=== PATIENT | female | born 1980 | race Caucasian/White ===

== ENCOUNTER 2017-01-29 07:21 | Emergency (ER) | payer OTHER ==
[2017-01-29 07:27] VITALS: BP 124/66
[2017-01-29] MEDS ORDERED: BUDESONIDE 180MCG FLEXHALER INH STA (07:36)
[2017-01-29] MEDS ORDERED: BUDESONIDE 0.5 MG/2 ML NEB INH STA (07:42)
--- NOTE | 2017-01-29 08:01 | ED Physician Documentation ---
History of Present Illness - Stated complaint Stated Complaint: SOA,COUGH - Chief complaint Chief Complaint: Resp - Additonal information Additional information: hx from pt 36 female 2 months approx 5-7 days of a cough and now soa too son also with cough/viral illness/asthma sx no travel non smoker active and fit no leg discomfort or swelling no personal or fhx DVT PE no fever sore throat NVD etc Review of Systems Constitutional: denies: Fever, Chills Nose: denies: Congestion Throat: denies: Sore throat Respiratory: reports: Dyspnea, Cough : reports: Now EGA Musculoskeletal: denies: Extremity swelling Neurologic: denies: Generalized weakness PD PAST MEDICAL HISTORY - Past Medical History Neuro: Headache/migraine GI: Hiatal hernia 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) - Past Surgical History Past Surgical History: Yes General: Other /INSPECTOR ASSEMBLY: Dilation and currettage HEENT: Tonsil/Adenoidectomy - Present Medications Home Medications: Ambulatory Orders Medication Instructions Recorded Confirmed Multivit with Iron-Minerals 1 each PO DAILY 07/05/16 01/29/17 [Cerovite Jr] Budesonide [Pulmicort] 1 puffs INH BID PRN #1 inhaler 01/29/17 Dextromethorphan HBr [Tussin 15 mg PO Q6H PRN #60 ml 01/29/17 Maximum Strength] - Allergies Allergies/Adverse Reactions: Allergies Allergy/AdvReac Type Severity Reaction Status Date / Time Penicillins Allergy Rash Verified 01/29/17 07:27 - Social History Does the pt smoke?: No Smoking Status: Never smoker Does the pt drink ETOH?: No Does the pt have substance abuse?: No - Immunizations Immunizations are current?: Yes - POLST Patient has POLST: No PD ED PE NORMAL - General General: Alert and oriented X 3 - HEENT HEENT: PERRL, Ears normal, Moist mucous membranes - Neck Neck: Supple, no meningeal sign - Cardiac Cardiac: RRR - Respiratory Respiratory: No respiratory distress, Clear bilaterally - Extremities Extremities: No deformity, Normal ROM s pain, No edema, No calf tenderness / cord - Neuro Neuro: Alert and oriented X 3 Results - Vitals Vitals: Vital Signs - 24 hr 01/29/17 07:25 Temperature 36.6 C Heart Rate 86 Respiratory 18 Rate Blood Pressure 124/66 O2 Saturation 98 Oxygen O2 Source Room air PD MEDICAL DECISION MAKING - ED course ED course: son with similar sx, has a freq dry cough and feeling soa cannot PERC 2/2 but is not tachy tachypneic hypoxic does not smoke and is very active and has no leg pain or swelling so strongly doubt PE lungs clear and afebrile so defer CXR will tx symptomatically pulmicort and DM are safe in preg so will rx same for symptom control return if worse Departure - Departure Disposition: 01 Home, Self Care Clinical Impression: Upper respiratory tract infection Qualifiers: URI type: unspecified URI Qualified Code(s): J06.9 - Acute upper respiratory infection, unspecified Condition: Good Instructions: ED URI Viral Prescriptions: Budesonide [Pulmicort] 1 puffs INH BID PRN #1 inhaler PRN Reason: cough shortness of breath Dextromethorphan HBr [Tussin Maximum Strength] 15 mg PO Q6H PRN #60 ml PRN Reason: Cough Comments: Your lungs sound clear - I don't think you have pneumonia. Your oxygen levels are fine and you don't have any leg pain or swelling so i don 't think you have a blood clot that travelled to your lungs. It sounds like you have a viral infection similar to what your son has I have prescribed some medications that are safe in to ease your symptoms. Please follow up with your OB. Return if worse
== END 2017-01-29 08:23 | disposition home or self-care (01) ==
LOC: ED 07:21
DX: O99.511 Diseases of the respiratory system complicating pregnancy, first trimester (principal); J06.9 Acute upper respiratory infection, unspecified; Z3A.08 8 weeks gestation of pregnancy
CPT/HCPCS: 99283

== ENCOUNTER 2018-06-20 19:14 | Emergency (ER) | payer OTHER ==
[2018-06-20 19:39] LABS: BASOPHILS # (AUTO) 0.1 10^3/uL (0.0-0.1); BASOPHILS % (AUTO) 0.6 %; EOSINOPHILS # (AUTO) 0.2 10^3/uL (0.0-0.7); EOSINOPHILS % (AUTO) 2.5 %; HGB - HEMOGLOBIN 13.5 g/dL (12.0-16.0); LYMPHOCYTES # (AUTO) 3.3 10^3/uL (1.5-3.5); LYMPHOCYTES % (AUTO) 34.5 %; MEAN CORPUSCULAR HEMOGLOBIN 30.5 pg (27.0-31.0); MEAN CORPUSCULAR VOLUME 87.2 fL (81.0-99.0); MEAN PLATELET VOLUME 8.1 fL (7.9-10.8); MONOCYTES # (AUTO) 0.7 10^3/uL (0.0-1.0); MONOCYTES % (AUTO) 7.4 %; NEUTROPHILS # (AUTO) 5.3 10^3/uL (1.5-6.6); PLT - PLATELET COUNT 212 10^3/uL (130-450); RED BLOOD COUNT 4.44 10^6/uL (4.20-5.40); RED CELL DISTRIBUTION WIDTH 12.6 % (12.0-15.0); WHITE BLOOD COUNT 9.6 x10^3/uL (4.8-10.8)
[2018-06-20 19:49] LABS: BILIRUBIN,URINE NEGATIVE (NEGATIVE); GLUCOSE, URINE (UA) NEGATIVE (NEGATIVE); KETONES,URINE (UA) NEGATIVE (NEGATIVE); LEUKOCYTE ESTERASE, URINE NEGATIVE (NEGATIVE); NITRITE,URINE NEGATIVE (NEGATIVE); OCCULT BLOOD,URINE TRACE-INTA (NEGATIVE); PROTEIN,URINE NEGATIVE (NEGATIVE); UROBILINOGEN,URINE 0.2 (NORMAL) E.U./dL (NORMAL)
[2018-06-20 19:54] LABS: CLARITY,URINE CLEAR (CLEAR)
[2018-06-20 19:55] LABS: HCG UR QUAL NEGATIVE
[2018-06-20 19:56] LABS: ALBUMIN 4.3 g/dL (3.2-5.5); ALBUMIN/GLOBULIN RATIO 1.6 (1.0-2.2); BILIRUBIN,TOTAL 0.4 mg/dL (0.2-1.0); CALCIUM 8.8 mg/dL (8.5-10.3); CREATININE 0.8 mg/dL (0.4-1.0)
--- NOTE | 2018-06-20 21:22 | ED Physician Documentation ---
PD HPI ABD PAIN - Stated complaint Stated Complaint: ABD PX/NAUSEATED - Chief complaint Chief Complaint: Abd Pain - History obtained from History obtained from: Patient - History of Present Illness Timing - onset: How many days ago (4-5) Timing - duration: Days Timing - details: Gradual onset, Waxing and waning Pain level now: 8 Quality: Pain Location: RLQ Radiation: Other (RUQ) Improved by: Other (nothing) Worsened by: Other (no ameliorating factors) Associated symptoms: Nausea. No: Fever, Vomiting, Diarrhea, Constipation Similar symptoms before: Has not had sx before Recently seen: Clinic (evaluated at [facility] 3 days ago, prescribed Mobic, no testing performed (per patient)) Review of Systems Constitutional: reports: Reviewed and negative Cardiac: reports: Reviewed and negative Respiratory: reports: Reviewed and negative GI: reports: Abdominal Pain, Nausea. 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 MACHINE TENDER: Dilation and currettage, Tubal ligation HEENT: Tonsil/Adenoidectomy - Present Medications Home Medications: Ambulatory Orders Medication Instructions Recorded Confirmed No Known Home Medications 06/20/18 06/20/18 - Allergies Allergies/Adverse Reactions: Allergies Allergy/AdvReac Type Severity Reaction Status Date / Time Penicillins Allergy Rash Verified 06/20/18 19:22 - Social History Does the pt smoke?: No Smoking Status: Never smoker Does the pt drink ETOH?: No Does the pt have substance abuse?: No - Immunizations Immunizations are current?: Yes - POLST Patient has POLST: No PD ED PE NORMAL - Vitals Vital signs reviewed: Yes - General General: Alert and oriented X 3, No acute distress (NAD at rest, appears to have painful discomfort with certain movement (such as sitting up)), Well developed/nourished - HEENT HEENT: Moist mucous membranes - Cardiac Cardiac: RRR, No murmur - Respiratory Respiratory: No respiratory distress, Clear bilaterally - Abdomen Abdomen: Soft, Non distended - Back Back: No CVA TTP - Derm Derm: Normal color, Warm and dry - Extremities Extremities: No edema PD ED PE EXPANDED - Abdomen Abdomen: Tender to palpation (moderate), RLQ. No: Rebound, Guarding Results - Vitals Vitals: Vital Signs - 24 hr 06/20/18 06/20/18 06/20/18 19:20 20:43 21:53 Temperature 36.8 C Heart Rate 67 Respiratory 16 17 17 Rate Blood Pressure 105/76 O2 Saturation 100 06/20/18 06/20/18 22:03 22:39 Temperature 36.6 C Heart Rate 61 60 Respiratory 16 16 Rate Blood Pressure 109/76 108/73 O2 Saturation 99 98 Oxygen O2 Source Room air - Labs Labs: Laboratory Tests 06/20/18 06/20/18 06/20/18 19:30 19:30 19:33 WBC 9.6 RBC 4.44 Hgb 13.5 Hct 38.8 MCV 87.2 MCH 30.5 MCHC 35.0 RDW 12.6 Plt Count 212 MPV 8.1 Neut # (Auto) 5.3 Lymph # (Auto) 3.3 [place] # (Auto) 0.7 Eos # (Auto) 0.2 Baso # (Auto) 0.1 Absolute Nucleated RBC 0.01 Nucleated RBC % 0.1 Sodium Potassium Chloride Carbon Dioxide Anion Gap BUN Creatinine Estimated GFR (MDRD) Glucose Calcium Total Bilirubin AST ALT Alkaline Phosphatase Total Protein Albumin Globulin Albumin/Globulin Ratio Lipase Urine Color YELLOW Urine Clarity CLEAR Urine pH 7.0 Ur Specific [place] 1.010 1.010 Urine Protein NEGATIVE Urine Glucose (UA) NEGATIVE Urine Ketones NEGATIVE Urine Occult Blood TRACE-INTA Urine Nitrite NEGATIVE Urine Bilirubin NEGATIVE Urine Urobilinogen 0.2 (NORMAL) Ur Leukocyte Esterase NEGATIVE Ur Microscopic Review NOT INDICATED Urine Culture Comments NOT INDICATED Urine HCG, Qual NEGATIVE 06/20/18 19:33 WBC RBC Hgb Hct MCV MCH MCHC RDW Plt Count MPV Neut # (Auto) Lymph # (Auto) [place] # (Auto) Eos # (Auto) Baso # (Auto) Absolute Nucleated RBC Nucleated RBC % Sodium 139 Potassium 3.7 Chloride 103 Carbon Dioxide 28 Anion Gap 8.0 BUN 22 H Creatinine 0.8 Estimated GFR (MDRD) 80 L Glucose 64 L Calcium 8.8 Total Bilirubin 0.4 AST 19 ALT 17 Alkaline Phosphatase 44 Total Protein 7.0 Albumin 4.3 Globulin 2.7 Albumin/Globulin Ratio 1.6 Lipase 47 Urine Color Urine Clarity Urine pH Ur Specific [place] Urine Protein Urine Glucose (UA) Urine Ketones Urine Occult Blood Urine Nitrite Urine Bilirubin Urine Urobilinogen Ur Leukocyte Esterase Ur Microscopic Review Urine Culture Comments Urine HCG, Qual PD MEDICAL DECISION MAKING - ED course Complexity details: reviewed results, re-evaluated patient, considered differential, d/w patient ED course: Unfortunately, CT scanner is not working at this time at [facility] and awaiting part that should come tomorrow (thus not expected to be repaired at least until birgit orrow). D/W Dr. Powers (ED physician at ), accepts for transfer to perform CT A/P. I explained this plan, and reason for transfer, to patient, and she expresses understanding of, and agreement with , this plan. - Sepsis Event Vital Signs: Vital Signs - 24 hr 06/20/18 06/20/18 06/20/18 19:20 20:43 21:53 Temperature 36.8 C Heart Rate 67 Respiratory 16 17 17 Rate Blood Pressure 105/76 O2 Saturation 100 06/20/18 06/20/18 22:03 22:39 Temperature 36.6 C Heart Rate 61 60 Respiratory 16 16 Rate Blood Pressure 109/76 108/73 O2 Saturation 99 98 Oxygen O2 Source Room air Departure - Departure Disposition: 02 Transfer Acute Care Hosp Clinical Impression: Abdominal pain Qualifiers: Abdominal location: right lower quadrant Qualified Code(s): R10.31 - Right lower quadrant pain Condition: Stable Discharge Date/Time: 06/20/18 23:21
[2018-06-20] MEDS ORDERED: MORPHINE 10 MG/ML VIAL IVP STA (21:54)
[2018-06-20] MEDS ORDERED: SODIUM CHLORIDE 0.9% 1,000 ML IV STA (21:55)
[2018-06-20] MEDS ORDERED: ONDANSETRON 4 MG/2 ML VIAL IVP STA (22:19)
[2018-06-20 22:41] VITALS: BP 108/73
== END 2018-06-20 23:21 | disposition short-term general hospital (02) ==
LOC: ED 19:14
DX: R10.31 Right lower quadrant pain (principal)
CPT/HCPCS: 36415; 80053; 81001; 81003; 81025; 83690; 85025; 87086; 96374; 96375; 99283; 99284

== ENCOUNTER 2018-06-20 22:56 | Outpatient (CLI) | payer OTHER | END 2018-06-20 22:57 | disposition short-term general hospital (02) | LOC: EMS 22:56 | PROVIDERS: ATTEND Surgery | DX: R10.9 Unspecified abdominal pain (principal) | CPT/HCPCS: A0425; A0426 ==

== ENCOUNTER 2019-01-24 06:42 | Emergency (ER) | payer OTHER ==
[2019-01-24 06:53] VITALS: BP 113/66
[2019-01-24 07:13] LABS: BILIRUBIN,URINE NEGATIVE (NEGATIVE); GLUCOSE, URINE (UA) NEGATIVE (NEGATIVE); KETONES,URINE (UA) NEGATIVE (NEGATIVE); LEUKOCYTE ESTERASE, URINE MODERATE (NEGATIVE); NITRITE,URINE NEGATIVE (NEGATIVE); OCCULT BLOOD,URINE MODERATE (NEGATIVE); PROTEIN,URINE NEGATIVE (NEGATIVE); UROBILINOGEN,URINE 0.2 (NORMAL) E.U./dL (NORMAL)
--- NOTE | 2019-01-24 07:15 | ED Physician Documentation ---
PD HPI ABD PAIN - Stated complaint Stated Complaint: ABD/LOW BACK PX - Chief complaint Chief Complaint: Abd Pain - History obtained from History obtained from: Patient - History of Present Illness Timing - onset: Other (This is a 38-year-old woman has been dealing with some abdominal pain for quite some time. For the most part it has been upper abdominal central. It was diagnosed to gas as a sports hernia by ultrasound. She had a CAT scan about 7 or 8 months ago that was negative per her at [facility]. She is been in physical therapy for this. She also has a bilateral inguinal hernia repair with mesh. Over the last 2 days she has had more right- sided mid abdominal pain. She alternates between constipation and diarrhea. It may be related to stress. She denies nausea or changes with eating. There is no specific motions that change it. There is no possibility of .) Review of Systems Ten Systems: 10 systems reviewed and negative Constitutional: denies: Fever, Chills Throat: denies: Dental pain / toothache, Sore throat Cardiac: denies: Chest pain / pressure, Palpitations Respiratory: denies: Dyspnea, Cough PD PAST MEDICAL HISTORY - Past Medical History Cardiovascular: None Respiratory: None Neuro: None Endocrine/Autoimmune: None GI: Hiatal hernia STUDY LEAD: Miscarriage(s) : None HEENT: None Psych: None Musculoskeletal: None Derm: None - Past Surgical History Past Surgical History: Yes General: Other /STUDY LEAD: Dilation and currettage, Tubal ligation HEENT: Tonsil/Adenoidectomy - Present Medications Home Medications: Ambulatory Orders Medication Instructions Recorded Confirmed Ibuprofen [Motrin] 800 mg PO Q8H PRN #30 tablet 01/24/19 - Allergies Allergies/Adverse Reactions: Allergies Allergy/AdvReac Type Severity Reaction Status Date / Time Penicillins Allergy Rash Verified 06/20/18 19:22 - Social History Does the pt smoke?: No Smoking Status: Never smoker Does the pt drink ETOH?: No Does the pt have substance abuse?: No - Family History Family history: reports: Non contributory - Immunizations Immunizations are current?: Yes - POLST Patient has POLST: No PD ED PE NORMAL - Vitals Vital signs reviewed: Yes - General General: Alert and oriented X 3, No acute distress - HEENT HEENT: PERRL, EOMI - Neck Neck: Supple, no meningeal sign, No bony TTP - Cardiac Cardiac: RRR, No murmur - Respiratory Respiratory: No respiratory distress - Abdomen Abdomen: Normal bowel sounds, Soft, Other (Tender R mid abd, no G/R) - Back Back: No CVA TTP - Derm Derm: Normal color, Warm and dry - Extremities Extremities: No edema, No calf tenderness / cord - Neuro Neuro: Alert and oriented X 3, Normal speech - Psych Psych: Normal mood, Normal affect Results - Vitals Vitals: Vital Signs - 24 hr 01/24/19 06:47 Temperature 36.4 C L Heart Rate 69 Respiratory 20 Rate Blood Pressure 113/66 O2 Saturation 100 Oxygen O2 Source Room air - Labs Labs: Laboratory Tests 01/24/19 01/24/19 01/24/19 06:54 07:15 07:15 WBC 5.7 RBC 4.54 Hgb 13.4 Hct 39.8 MCV 87.7 MCH 29.6 MCHC 33.7 RDW 12.4 Plt Count 218 MPV 8.1 Neut # (Auto) 3.0 Lymph # (Auto) 2.0 [place] # (Auto) 0.6 Eos # (Auto) 0.1 Baso # (Auto) 0.0 Absolute Nucleated RBC 0.00 Nucleated RBC % 0.1 Sodium 139 Potassium 3.6 Chloride 105 Carbon Dioxide 25 Anion Gap 9.0 BUN 17 Creatinine 1.0 Estimated GFR (MDRD) 62 L Glucose 101 H Calcium 8.9 Total Bilirubin 1.0 AST 16 ALT 13 Alkaline Phosphatase 34 L Total Protein 6.4 L Albumin 3.8 Globulin 2.6 Albumin/Globulin Ratio 1.5 Lipase 35 Urine Color YELLOW Urine Clarity HAZY Urine pH 6.0 Ur Specific [place] 1.015 Urine Protein NEGATIVE Urine Glucose (UA) NEGATIVE Urine Ketones NEGATIVE Urine Occult Blood MODERATE H Urine Nitrite NEGATIVE Urine Bilirubin NEGATIVE Urine Urobilinogen 0.2 (NORMAL) Ur Leukocyte Esterase MODERATE H Urine RBC 6-10 H Urine WBC 6-10 H Ur Squamous Epith Cells FEW Squamous Urine Bacteria Few Ur Microscopic Review INDICATED Urine Culture Comments INDICATED Urine HCG, Qual NEGATIVE - Rads (name of study) CT A/P Radiology: EMP read contemporaneously (Pelvic venous congestion, normal ap pendix, no other acute abnormalities.) PD MEDICAL DECISION MAKING - ED course ED course: 38-year-old woman with now chronic unexplained abdominal pain presents with somewhat new and different right-sided abdominal pain and appendicitis was on the differential but negative on CT. The CT findings were shared with her and primary care and gynecologic follow-up was advised. She declined pain medication. Departure - Departure Disposition: 01 Home, Self Care Clinical Impression: Chronic abdominal pain Condition: Good Record reviewed to determine appropriate education?: Yes Instructions: ED Abdominal Pain Unkn Cause Prescriptions: Ibuprofen [Motrin] 800 mg PO Q8H PRN #30 tablet PRN Reason: PAIN &/OR FEVER Comments: The CAT scan today shows potential pelvic venous congestion which may be a painful phenomenon, follow-up with your hog ringer for evaluation of this. Return for new or worsening symptoms. Discharge Date/Time: 01/24/19 08:52
[2019-01-24 07:18] LABS: CLARITY,URINE HAZY (CLEAR); HCG UR QUAL NEGATIVE
[2019-01-24 07:23] LABS: BASOPHILS % (AUTO) 0.8 %; EOSINOPHILS # (AUTO) 0.1 10^3/uL (0.0-0.7); EOSINOPHILS % (AUTO) 1.6 %; HGB - HEMOGLOBIN 13.4 g/dL (12.0-16.0); LYMPHOCYTES % (AUTO) 34.7 %; MEAN CORPUSCULAR HEMOGLOBIN 29.6 pg (27.0-31.0); MEAN CORPUSCULAR HGB CONC 33.7 g/dL (32.0-36.0); MEAN CORPUSCULAR VOLUME 87.7 fL (81.0-99.0); MEAN PLATELET VOLUME 8.1 fL (7.9-10.8); MONOCYTES # (AUTO) 0.6 10^3/uL (0.0-1.0); MONOCYTES % (AUTO) 9.9 %; PLT - PLATELET COUNT 218 10^3/uL (130-450); RED BLOOD COUNT 4.54 10^6/uL (4.20-5.40); RED CELL DISTRIBUTION WIDTH 12.4 % (12.0-15.0); WHITE BLOOD COUNT 5.7 x10^3/uL (4.8-10.8)
[2019-01-24] MEDS ORDERED: IOVERSOL 320 100 ML VIAL IVP ONE ×2 (07:27→13:45)
[2019-01-24 07:38] LABS: ALBUMIN 3.8 g/dL (3.2-5.5); ALBUMIN/GLOBULIN RATIO 1.5 (1.0-2.2); CALCIUM 8.9 mg/dL (8.5-10.3); TOTAL PROTEIN 6.4 g/dL (6.7-8.2)
[2019-01-24 07:53] LABS: BACTERIA,URINE Few /HPF (None Seen); SQUAMOUS EPITHELIAL CELL,UR FEW Squamous (<= Few)
--- NOTE | 2019-01-24 07:59 | CT Report ---
Reason: IV only, RLQ pain Procedure Date: 01/24/2019 Accession Number: [id number] / [id number] Procedure: CT - Abdomen/Pelvis W CPT Code: FULL RESULT: EXAM: CT ABDOMEN AND PELVIS EXAM DATE: 01/24/2019 07:42 AM. CLINICAL HISTORY: Right lower quadrant pain. COMPARISONS: ABDOMEN/PELVIS W/ 10/12/2014 8:44 AM. TECHNIQUE: Routine helical CT imaging was performed through the abdomen and pelvis. IV contrast: 90 cc Optiray 320. Enteric contrast: No. Reconstructions: Coronal and sagittal. In accordance with CT protocol optimization, one or more of the following dose reduction techniques were utilized for this exam: automated exposure control, adjustment of mA and/or KV based on patient size, or use of iterative reconstructive technique. FINDINGS: Lung Bases: Unremarkable. Liver: Normal. No masses. Gallbladder/Bile Ducts: Unremarkable. Spleen: Normal. Pancreas: Normal. Adrenal Glands: Normal. Kidneys: Normal. No masses or hydronephrosis. Peritoneal Cavity/Bowel: Normal. No free fluid, free air or adenopathy. No masses or acute inflammatory process. The appendix is well visualized and normal. Pelvic Organs: Normal. The bladder and visualized pelvic organs are within normal limits. Vasculature: Prominence of the left gonadal and periuterine veins is seen. Otherwise, unremarkable. Bones: No significant abnormality. Other: None. IMPRESSION: 1. No acute intra-abdominal abnormality demonstrated. Appendix appears normal. 2. Prominent left gonadal and periuterine veins likely due to reflux. Correlate clinically for pelvic congestion syndrome. RADIA
== END 2019-01-24 08:52 | disposition home or self-care (01) ==
LOC: ED 06:42
DX: R10.9 Unspecified abdominal pain (principal); G89.29 Other chronic pain
CPT/HCPCS: 36415; 74177; 80053; 81001; 81025; 83690; 85025; 87086; 99283; Q9967; 81003

== ENCOUNTER 2019-02-25 12:37 | Outpatient (CLI) | payer OTHER ==
[2019-02-25] MEDS ORDERED: GADOBUTROL 7.5 MMOL/7.5 ML VIAL ONE (14:07)
[2019-02-25] MEDS ORDERED: GADOBUTROL 7.5 MMOL/7.5 ML VIAL IVP ONE (14:15)
--- NOTE | 2019-02-25 20:29 | MRI Report ---
Reason: PELVIC AND PERINEAL PAIN Procedure Date: 02/25/2019 Accession Number: [id number] / [id number] Procedure: MRI - Pelvis W/WO CPT Code: FULL RESULT: EXAM: MR PELVIS WITH AND WITHOUT CONTRAST (MR FEMALE PELVIS) EXAM DATE: 02/25/2019 02:27 PM. CLINICAL HISTORY: PELVIC AND PERINEAL PAIN. COMPARISON: CT 01/24/2019. TECHNIQUE: Multiplanar breath-hold T1, T2 and DWI sequences obtained through the pelvis on an MR scanner. Images obtained before and after administration of 7.5 cc Gadavist intravenous contrast. FINDINGS: Reproductive Organs: Uterus: The uterus is anteverted and measures 6 x 5 x 5 cm with volume 75 cc. The endometrial stripe measures 6 mm. There are a few punctate T1 hyperintense foci within the fundal endometrial canal/transitional zone. No evidence of focal uterine mass. Moderate left greater than right pelvic varices around the uterus, ovaries and extending into the anteroinferior pelvis adjacent to the urethra. Right Ovary: The right ovary measures 2.7 x 2 cm . Few small follicles and appears normal. Left Ovary: The left ovary measures 2.7 x 1.6 cm . A few small follicles and normal enhancement. Bowel: The visualized portions of the small bowel, colon, and rectum appear normal. Bladder: The urinary bladder appears normal. Other: None. IMPRESSION: 1. Punctate T1 hyperintense foci in the fundal endometrial/junctional zone. Likely small foci of uterine adenomyosis. 2. Moderate left greater than right pelvic varices. 3. No additional evidence of mass, lymphadenopathy or inflammatory process in the pelvis. RADIA
== END 2019-02-25 12:38 | disposition home or self-care (01) ==
LOC: DI 12:37
PROVIDERS: ATTEND Obstetrics & Gynecology
DX: R10.2 Pelvic and perineal pain (principal); I86.2 Pelvic varices
CPT/HCPCS: 72197; A9585

== ENCOUNTER 2019-04-03 07:30 | Inpatient (IN) | payer OTHER ==
[2019-04-13 11:21] LABS: HCG UR QUAL NEGATIVE
[2019-04-13] MEDS ORDERED: LIDOCAINE MPF 1%-EPI 1:200000 30 ML VIAL ONE (11:30)
[2019-04-13] MEDS ORDERED: BUPIVACAINE 0.25% PF 30 ML VIAL ONE (11:30)
[2019-04-13] MEDS ORDERED: LACTATED RINGERS 1,000 ML IV ONE ×2 (11:32→13:52)
--- NOTE | 2019-04-13 11:34 | ANESTHESIA ---
Pre-Anesthesia VS, & Labs - Diagnosis adenomyosis, pelvic pain - Procedure laparoscopic assisted vaginal hysterectomy Vital Signs: Temp Pulse Resp BP Pulse Ox 36.3 C L 53 L 16 112/73 100 04/13/19 11:11 04/13/19 11:11 04/13/19 11:11 04/13/19 11:11 04/13/19 11:11 Height 5 ft 7 in Weight (kg) 68.95 kg Body Mass Index 24.7 - NPO >8 hours - Is Patient ?: No Home Medications and Allergies Home Medications: Ambulatory Orders Multivitamin [Multivitamins] 1 each PO 04/07/19 Multivitamin [Multivitamins] 1 each PO 04/07/19 Allergies/Adverse Reactions: Allergies Allergy/AdvReac Type Severity Reaction Status Date / Time Penicillins Allergy Rash Verified 04/07/19 11:36 Anes History & Medical History - Anesthetic History Anesthesia Complications: reports: No previous complications Family history of Anesthesia Complications: Denies Family history of Malignant Hyperthermia: Denies - Medical History Cardiovascular: reports: None Pulmonary: reports: None Gastrointestinal: reports: None Urinary: reports: Other Neuro: reports: None Musculoskeletal: reports: None Endocrine/Autoimmune: reports: None Blood Disorders: reports: None Skin: reports: None Smoking Status: Never smoker - Surgical History General: Colonoscopy, Other Eyes Ears Nose Throat (EENT): Tonsil/Adenoidectomy Gynecologic: Endometrial ablation, Dilation and currettage, Breast implants Exam General: Alert, Oriented x3, Cooperative, No acute distress Dental: WNL Mouth Openin Fingerbreadth Neck Mobility: Normal Mallampati classification: II Thyromental Distance: 4-6 cm Respiratory: Lungs clear, Normal breath sounds, No respiratory distress, No accessory muscle use Cardiovascular: Regular rate, Normal S1, Normal S2, No murmurs Plan Anesthesia Type: General Consent for Procedure(s) Verified and Reviewed: No Code Status: Attempt Resuscitation ASA classification: 1-Healthy patient Is this case an emergency?: No
[2019-04-13] MEDS ORDERED: CEFAZOLIN SODIUM IN 0.9 % NACL 2 GM/100 ML BAG IV ONE (11:45)
[2019-04-13] MEDS ORDERED: LIDOCAINE 1%-EPI 1:100000 20 ML MDV SUBQ ONE (13:14)
[2019-04-13] MEDS ORDERED: BUPIVACAINE 0.25% PF 30 ML VIAL SUBQ ONE ×2 (13:14)
[2019-04-13] MEDS ORDERED: ONDANSETRON 4 MG/2 ML VIAL IVP PRN (14:37)
[2019-04-13] MEDS ORDERED: SIMETHICONE CHEW 80 MG TABLET PO PRN (14:37)
[2019-04-13] MEDS ORDERED: ACETAMINOPHEN 1,000 MG/100 ML 100 ML IV ONE (14:42)
[2019-04-13] MEDS ORDERED: GLYCOPYRROLATE 1 MG/5 ML VIAL IVP ONE (14:42)
[2019-04-13] MEDS ORDERED: ROCURONIUM 50 MG/5 ML VIAL IVP ONE (14:42)
[2019-04-13] MEDS ORDERED: DEXAMETHASONE 4 MG/ML VIAL IVP ONE (14:42)
[2019-04-13] MEDS ORDERED: PROPOFOL 200 MG/20 ML VIAL IVP ONE (14:42)
[2019-04-13] MEDS ORDERED: fentaNYL 250 MCG/5 ML VIAL IVP ONE (14:42)
[2019-04-13] MEDS ORDERED: NEOSTIGMINE 1 MG/1 ML 10 ML MDV IVP ONE (14:42)
[2019-04-13] MEDS ORDERED: MIDAZOLAM 2 MG/2 ML VIAL IVP ONE (14:42)
[2019-04-13] MEDS ORDERED: ONDANSETRON 4 MG/2 ML VIAL IVP ONE (14:42)
[2019-04-13] MEDS ORDERED: KETOROLAC 30 MG/ML VIAL IVP ONE (14:42)
--- NOTE | 2019-04-13 14:52 | OPERATIVE REPORT ---
Operative Report - General Admit Date: 04/13/19 Procedure Date: 04/13/19 Planned Procedure: Laparoscopic-assisted vaginal hysterectomy Pre-Op Diagnosis: Chronic pelvic pain, pelvic congestion, suspected adenomyosis Procedure Performed: Laparoscopic-assisted vaginal hysterectomy Post Op Diagnosis: MISAEL - Procedure Note Primary Surgeon: Dr. Jeane Garcia Secondary Surgeon: Dr. Bj Taveras Anesthesia Provider: PAULA Bender Anesthesia Technique: General ET tube, Local (0.25% marcaine plain, 1% lidocaine with epi) Pathology: Uterus and cervix IV Fluids (mL): 1,400 Estimated Blood Loss (mL): 250 Urine Output (mL): 50 Indications: The patient is a 38-year-old 7 para 3 abortus 4 female here for hysterectomy for management of chronic pelvic pain, pelvic congestion, and suspected adenomyosis. She has been on continuous control pills and has noted no improvement in pain. Her gynecologic history is notable for a hysteroscopy, dilation curettage, and endometrial ablation on 25 April 2018 (for management of abnormal uterine bleeding). The surgery was uncomplicated, and findings were normal. Her pathology result was also benign. In addition, she had laparoscopic bilateral salpingectomies in 2017, and no endometriosis was noted intraoperatively. Shortly after her recent ablation surgery, she presented to clinic with a complaint of right flank pain, which was thought related to activity and improved with trigger point injection then lidocaine patches. She has tried physical therapy, rest, and time, but she continues to have frequent episodes of right flank pain and right lower quadrant pain. She states her physical therapist recommend an MRI, which was obtained and showed no clear musculoskeletal reason for her pain. All symptoms seemed to have started since her ablation surgery. She reports cramping that starts at the right flank and radiates to the right lower quadrant. Pain seems to occur most frequently while exercising. She is also struggling with fatigue and constipation and has seen GI for her constipation concerns. Her recent colonoscopy was normal. She had a CT abdomen and pelvis with results noting only left pelvic congestion. Additionally, a pelvic ultrasound in 2018 also noted left pelvic congestion (though the patient was asymptimn. After reviewing her constellation of sympt oms and her evaluation notable for pelvic congestion, we discussed the possibility of ADVERTISING PRODUCTION MANAGER causes to include post-tubal, ablation pain or adenomyosis. The pelvic congestion may also be contributing to her pain. We also discussed possible etiology being abdominal or pelvic adhesions, as well as the possibility that the pain may not be of ADVERTISING PRODUCTION MANAGER etiology. Following this discussion, she desired to proceed with definitive surgical management for her gynecologic concerns in the form of a hysterectomy. The risks, benefits, limitations, alternatives, and expectations of surgery were discussed. The c onsent was reviewed and signed prior to the date of surgery. Findings: Exam under anesthesia: The uterus was approximately 7 weeks in size and anteverted. There were no adnexal masses palpable. Operative findings: The uterus was slightly enlarged and boggy. Bilateral pelvic vascular congestion was noted. There were some residual sutures within the anterior peritoneum at the site of the patient's right hernia repair. These were left in situ. Her appendix was visualized and appeared normal. There were no endometriosis lesions noted. Some filmy adhesions were noted from the ascending bowel to the right flank peritoneum. These were left in situ. The liver edge appeared normal; however, the gallbladder appeared enlarged but otherwise normal in appearance. No other pelvic adhesions were noted. The fallopian tubes were surgically absent. The ovaries were normal in appearance. Complications: None - Other Other Information/Narrative: Procedure: The patient was taken to the operating room, where general endotracheal anesthesia was administered without difficulty. She was then positioned with her lower extremities in yellow-fin stirrups. Exam under anesthesia was then performed with the findings as noted above. Perineum, vagina, and abdomen were then prepped and draped in sterile fashion, and a garrett catheter was placed. Time out was then performed. Attention was first turned to placement of a uterine manipulator. A sterile bivalve speculum was inserted, and the cervix grasped with a single-toothed tenaculum. The cervix was then dilated until a HUMI uterine manipulator could be placed and balloon inflated. The tenaculum and speculum were then removed. Attention was then turned to the laparoscopy. 0.25% Marcaine, plain, was injected infraumbilically, then a 7-mm vertical skin incision made. A Verrees needle was then inserted through the anterior layers of the abdominal wall with saline drop test suggesting intraperitoneal placement. Carbon dioxide gas insufflation was then performed with appropriate opening pressures noted. Once 2 L of gas was instilled, a 0-degree, 5 mm laparoscope was inserted into a 5 mm trocar and passed through the anterior layers of the abdominal wall using Optiview technique. The abdomen was visualized, then 2 additional ports placed at the right and left lower quadrants, first instilling local anesthetic then placing 5 mm ports. The patient was placed into Trendelenberg and bowel swept out of the cul-de-sac. The left cornu was grasped, and the uterus retracted medially. The left round ligament was then cross-clamped, cauterized, and cut, then the anterior leaf of the broad ligament undermined, cauterized, and cut starting the bladder flap dissection on the left. The left utero-ovarian pedicle was then cross-clamped, cauterized, and cut. The left uterine vessels were then skeletonized, cross- clamped, cauterized, and cut. Attention was then turned to the right side, where the dissection was completed in similar fashion. The bladder flap was extended across the midline, completely dissecting the bladder inferiorly. Any bleeding was controlled with cautery. The trocars were left in situ as well as the majority of the gas while attention was turned to the vaginal portion of the case. The lower extremities were elevated to high lithotomy, the uterine manipulator was removed, and a sterile weighted speculum placed. The cervix was grasped with a double-toothed tenaculum, then 1% Lidocaine with epinephrine was injected circumferentially for hemostasis. A circumferential incision was then made with cauterization. The posterior cul-de-sac was not entered easily with blunt dissection, so inferior uterosacral ligaments were cross-clamped, cut, suture- ligated, and tagged for later identification. The cul-de-sac was then entered sharply, and an Auvard speculum placed after tagging the midline posterior peritoneum. A moderate collection of blood and clot was encountered, but no source for ongoing bleeding was noted. The anterior cul-de-sac was then entered using initially blunt dissection then a small sharp incision into the peritoneum. Two additional pedicles were secured on each side and two more on the right, then the uterus and cervix removed vaginally. Some bleeding was noted at a pedicle on the patient's right. This was grasped with an Allis clamp then secured with a figure of eight suture. Hemostasis was noted at that time. The peritoneum was then closed with a purse-string suture of 0 vicryl, then the vaginal cuff was irrigated with sterile saline. The vaginal mucosa was then closed with serial figure of eight sutures of 0 vicryl. A sponge stick was placed, and attention returned to laparoscopy to visualize the cuff for bleeding. The lower extremities were replaced into low lithotomy. Gas was instilled again, and the dissections site noted to have a small amount of bleeding at the right uteroovarian dissection. This was cauterized then hemostatic. Copious irrigation was performed. The ureters were visualized and peristalsed. At this point the procedure was deemed complete. The gas was allowed to escape, and the trocars removed. The incisions were then closed with 4-0 monocryl in a subcuticular fashion followed by Dermabond. The sponge stick was removed from the vagina. The patient was then replaced supine, awakened, extubated, and transferred to the PACU in stable condition. There were no complications. Sponge, lap, and needle count were correct x 3.
[2019-04-13] MEDS ORDERED: KETOROLAC 30 MG/ML VIAL IVP SCH (15:00)
[2019-04-13] MEDS: LACTATED RINGERS 1,000 ML IV SCH ×2 (15:00→20:33)
[2019-04-13] MEDS ORDERED: MORPHINE 10 MG/ML VIAL IVP PRN (15:20)
[2019-04-13] MEDS: ACETAMINOPHEN 500 MG TABLET PO SCH ×2 (18:05→21:10)
[2019-04-13] MEDS: oxyCODONE 5 MG TABLET PO PRN (19:16)
[2019-04-13] MEDS: DOCUSATE SODIUM 100 MG CAPSULE PO SCH (21:09)
[2019-04-13] MEDS: KETOROLAC 30 MG/ML VIAL IVP SCH (21:11)
[2019-04-13] MEDS ORDERED: SODIUM CHLORIDE FLUSH 0.9% 10 ML SYRINGE ONE (21:13)
[2019-04-14] MEDS: oxyCODONE 5 MG TABLET PO PRN ×3 (00:43→14:20)
[2019-04-14] MEDS: ACETAMINOPHEN 500 MG TABLET PO SCH ×4 (00:44→13:38)
[2019-04-14] MEDS: KETOROLAC 30 MG/ML VIAL IVP SCH ×2 (02:38→07:49)
[2019-04-14 05:07] LABS: BASOPHILS % (AUTO) 0.3 %; EOSINOPHILS % (AUTO) 0.1 %; HGB - HEMOGLOBIN 11.3 g/dL (12.0-16.0); LYMPHOCYTES # (AUTO) 2.2 10^3/uL (1.5-3.5); LYMPHOCYTES % (AUTO) 14.7 %; MEAN CORPUSCULAR HEMOGLOBIN 30.5 pg (27.0-31.0); MEAN CORPUSCULAR HGB CONC 33.7 g/dL (32.0-36.0); MEAN CORPUSCULAR VOLUME 90.3 fL (81.0-99.0); MONOCYTES # (AUTO) 1.5 10^3/uL (0.0-1.0); MONOCYTES % (AUTO) 9.6 %; NEUTROPHILS # (AUTO) 11.3 10^3/uL (1.5-6.6); NEUTROPHILS % (AUTO) 74.6 %; PLT - PLATELET COUNT 176 10^3/uL (130-450); RED BLOOD COUNT 3.71 10^6/uL (4.20-5.40); RED CELL DISTRIBUTION WIDTH 11.6 % (12.0-15.0); WHITE BLOOD COUNT 15.2 x10^3/uL (4.8-10.8)
[2019-04-14] MEDS: LACTATED RINGERS 1,000 ML IV SCH (06:10)
[2019-04-14] MEDS ORDERED: SODIUM CHLORIDE FLUSH 0.9% 10 ML SYRINGE ONE (07:37)
[2019-04-14] MEDS: DOCUSATE SODIUM 100 MG CAPSULE PO SCH (07:50)
[2019-04-14] MEDS ORDERED: POLYETHYLENE GLYCOL 3350 17 GM PACKET PO SCH (14:30)
--- NOTE | 2019-04-14 15:12 | DISCHARGE SUMMARY ---
"Discharge Summary Admit Date: 04/13/19 Discharge Date: 04/14/19 Discharging Provider: Dr. Jeane Garcia Code Status: Attempt Resuscitation Condition at Discharge: Good Discharge Disposition: 01 Home, Self Care - DIAGNOSES Admission Diagnoses: Chronic pelvic pain, pelvic congestion, suspected adenomyosis Discharge Diagnoses with Status of Each Condition: Same now s/p LAVH - HPI History of Present Illness: See admission H&P - CONSULTS | PROCEDURES Procedures: Laparoscopic-assisted vaginal hysterectomy - HOSPITAL COURSE Hospital Course: After an uncomplicated laparoscopic-assisted vaginal hysterectomy, the patient was admitted to the recovery room and then the dias in stable condition. Overnight, her only concern was a sensation of a full bladder despite the presence of a Nettles catheter. A bedside bladder scan noted residual urine approximating 200-300 mL. The catheter was repositioned; however, some element of urinary retention persisted, and the bladder did not completely drain. The catheter was finally removed per physician recommendation to improve the patient's comfort. Once the catheter was removed, she was able to void and felt much better. On postoperative day #1 she was up and ambulating, tolerating oral intake, and controlling pain with oral pain medication. She was afebrile with normal vital signs during hospital day and was discharged home on postoperative day #1. - ALLERGIES Allergies/Adverse Reactions: Allergies Allergy/AdvReac Type Severity Reaction Status Date / Time Penicillins Allergy Rash Verified 04/07/19 11:36 - MEDICATIONS Home Medications: Ambulatory Orders Medication Instructions Recorded Confirmed Multivitamin [Multivitamins] 1 tab PO DAILY 04/07/19 04/13/19 Ibuprofen [Ibu] 800 mg PO DAILY PRN 04/13/19 04/13/19 Dicyclomine HCl 20 mg PO DAILY 04/14/19 04/14/19 Norethindrone-E.estradiol-Iron 1 tab PO DAILY 04/14/19 04/14/19 [Junel Fe 1.5 mg-30 Mcg Tablet] Omeprazole 20 mg PO QDAC 04/14/19 04/14/19 - PHYSICAL EXAM AT DISCHARGE General Appearance: positive: No acute distress Eyes Bilateral: positive: Normal inspection Respiratory: positive: No respiratory distress, Breath sounds nml Cardiovascular: positive: Regular rate & rhythm Abdomen: positive: Nml bowel sounds, Tenderness (Appropriate postop tenderness and distension noted.), Other (LSC incisions x 3: well-approximated with no separation, discharge, erythema, or bruising.) Skin: positive: Color nml Extremities: positive: Non-tender, Full ROM Neurologic/Psychiatric: positive: Oriented x3 - LABS Result Diagrams: 04/14/19 04:48 - FOLLOW UP Follow Up: [id number] at [facility] at 1015 - TIME SPENT Time Spent in Discharge (Minutes): 20"
--- NOTE | 2019-04-14 15:17 | Discharge Plan ---
Discharge Plan Problem Reviewed?: Yes Disposition: Home, Self Care Condition: Good Diet: Regular Activity Restrictions: see handout Shower Restrictions: No Driving Restrictions: Yes (OK to drive once pain-free off narcotics) Weight Bearing: Full Weight (Patient has discharge medications at home (motrin, tylenol, and oxycodone). F/u is scheduled with Dr. Garcia for 20 APR 2019.) Instruction Topics: Docusate capsules, Ketorolac injection, Morphine injection solution, Oxycodone tablets or capsules No Smoking: If you smoke, Please STOP! Call for help. Follow-up with: RAPHAEL LACEY MD [Primary Care Provider] -
[2019-04-14 16:28] VITALS: BP 110/63
== END 2019-04-14 16:15 | disposition home or self-care (01) | DRG 743 ==
LOC: MS2 04-13 10:57
PROVIDERS: ADMIT Obstetrics & Gynecology; ATTEND Obstetrics & Gynecology
PROC: 0UT9FZZ Resection of Uterus, Via Natural or Artificial Opening With Percutaneous Endoscopic Assistance (ICD-10-PCS; principal; 2019-04-13 12:00)
DX: N94.89 Other specified conditions associated with female genital organs and menstrual cycle (principal); N80.0 Endometriosis of uterus; G89.29 Other chronic pain; R33.9 Retention of urine, unspecified; I86.2 Pelvic varices; K59.09 Other constipation; Z79.3 Long term (current) use of hormonal contraceptives; Z90.79 Acquired absence of other genital organ(s); Z87.891 Personal history of nicotine dependence
CPT/HCPCS: 36415; 81025; 85025; A9270; J0131; J0690; J3010; J7120

== ENCOUNTER 2019-04-11 07:40 | Outpatient (CLI) | payer OTHER ==
[2019-04-11 08:20] LABS: BILIRUBIN,URINE NEGATIVE (NEGATIVE); GLUCOSE, URINE (UA) NEGATIVE (NEGATIVE); KETONES,URINE (UA) NEGATIVE (NEGATIVE); LEUKOCYTE ESTERASE, URINE SMALL (NEGATIVE); NITRITE,URINE NEGATIVE (NEGATIVE); OCCULT BLOOD,URINE TRACE-LYSE (NEGATIVE); PH,URINE 6.5 PH (5.0-7.5); PROTEIN,URINE NEGATIVE (NEGATIVE); UROBILINOGEN,URINE 0.2 (NORMAL) E.U./dL (NORMAL)
[2019-04-11 08:27] LABS: CALCIUM 9.3 mg/dL (8.5-10.3); CREATININE 0.9 mg/dL (0.4-1.0)
[2019-04-11 08:31] LABS: CLARITY,URINE CLEAR (CLEAR)
[2019-04-11 08:32] LABS: HCG UR QUAL NEGATIVE
[2019-04-11 08:33] LABS: BASOPHILS # (AUTO) 0.1 10^3/uL (0.0-0.1); BASOPHILS % (AUTO) 0.7 %; EOSINOPHILS # (AUTO) 0.1 10^3/uL (0.0-0.7); EOSINOPHILS % (AUTO) 1.6 %; HGB - HEMOGLOBIN 13.6 g/dL (12.0-16.0); LYMPHOCYTES # (AUTO) 2.9 10^3/uL (1.5-3.5); LYMPHOCYTES % (AUTO) 39.2 %; MEAN CORPUSCULAR HEMOGLOBIN 30.1 pg (27.0-31.0); MEAN CORPUSCULAR VOLUME 88.5 fL (81.0-99.0); MEAN PLATELET VOLUME 9.8 fL (7.9-10.8); MONOCYTES # (AUTO) 0.7 10^3/uL (0.0-1.0); MONOCYTES % (AUTO) 9.5 %; NEUTROPHILS # (AUTO) 3.6 10^3/uL (1.5-6.6); NEUTROPHILS % (AUTO) 48.7 %; PLT - PLATELET COUNT 215 10^3/uL (130-450); RED BLOOD COUNT 4.52 10^6/uL (4.20-5.40); RED CELL DISTRIBUTION WIDTH 11.5 % (12.0-15.0); WHITE BLOOD COUNT 7.4 x10^3/uL (4.8-10.8)
[2019-04-11 08:36] LABS: BACTERIA,URINE Rare /HPF (None Seen); RBC,URINE 0-5 /HPF (0-5); SQUAMOUS EPITHELIAL CELL,UR RARE Squamous (<= Few)
== END 2019-04-11 07:41 | disposition home or self-care (01) ==
LOC: LAB 07:40
PROVIDERS: ATTEND Obstetrics & Gynecology
DX: Z01.818 Encounter for other preprocedural examination (principal); N80.0 Endometriosis of uterus; R10.2 Pelvic and perineal pain
CPT/HCPCS: 36415; 80048; 81001; 81003; 81025; 85025; 86850; 86900; 86901; 87086

== ENCOUNTER 2020-02-05 22:48 | Emergency (ER) | payer OTHER ==
--- NOTE | 2020-02-05 22:54 | ED Physician Documentation ---
History of Present Illness - Stated complaint Stated Complaint: ABD PX - History obtained from History obtained from: Patient (The patient is a 39 y/o f who p/w a cc of RUQ pain. patient reports she was scheduled to have hear GB removed several months ago but has been delayed. reports severe pain, N/V. denies fevers.) Review of Systems Constitutional: reports: Reviewed and negative Eyes: reports: Reviewed and negative Ears: reports: Reviewed and negative Nose: reports: Reviewed and negative Throat: reports: Reviewed and negative Cardiac: reports: Reviewed and negative Respiratory: reports: Reviewed and negative GI: reports: Abdominal Pain, Nausea, Vomiting : reports: Reviewed and negative Skin: reports: Reviewed and negative Musculoskeletal: reports: Reviewed and negative Neurologic: reports: Reviewed and negative Psychiatric: reports: Reviewed and negative Endocrine: reports: Reviewed and negative Immunocompromised: reports: Reviewed and negative PD PAST MEDICAL HISTORY - Past Medical History Cardiovascular: None Respiratory: None Neuro: None Endocrine/Autoimmune: None GI: None HORTICULTURAL SPECIALTY GROWER: Miscarriage(s) : Other HEENT: None Psych: None Musculoskeletal: None Derm: None - Past Surgical History Past Surgical History: Yes General: Colonoscopy, Other /HORTICULTURAL SPECIALTY GROWER: Endometrial ablation, Dilation and currettage, Breast implants HEENT: Tonsil/Adenoidectomy - Present Medications Home Medications: Ambulatory Orders Medication Instructions Recorded Confirmed Hydrocodone/Acetaminophen [[place] 1 each PO Q6HR PRN #10 tablet 02/06/20 5-325 Tablet] Ondansetron Odt [Zofran Odt] 4 mg TL Q6H PRN #10 tablet 02/06/20 - Allergies Allergies/Adverse Reactions: Allergies Allergy/AdvReac Type Severity Reaction Status Date / Time Penicillins Allergy Rash Verified 02/05/20 22:58 - Social History Does the pt smoke?: No Smoking Status: Never smoker Does the pt drink ETOH?: No Does the pt have substance abuse?: No - Immunizations Immunizations are current?: Yes - POLST Patient has POLST: No PD ED PE NORMAL - Vitals Vital signs reviewed: Yes - General General: Alert and oriented X 3, No acute distress, Well developed/nourished - HEENT HEENT: Atraumatic, PERRL, Moist mucous membranes - Neck Neck: Supple, no meningeal sign - Cardiac Cardiac: RRR, No murmur, Strong equal pulses - Respiratory Respiratory: No respiratory distress, Clear bilaterally - Abdomen Abdomen: Normal bowel sounds, Soft, Other (TTP in RUQ positive murphys sign. no midline abdominal pulsatile mass.) - Derm Derm: Warm and dry - Extremities Extremities: No deformity - Neuro Neuro: Alert and oriented X 3 - Psych Psych: Normal mood, Normal affect Results - Vitals Vitals: Vital Signs - 24 hr 02/05/20 02/06/20 02/06/20 22:55 00:22 01:04 Temperature 36.4 C L Heart Rate 81 64 62 Respiratory 18 16 16 Rate Blood Pressure 126/78 118/71 123/67 O2 Saturation 98 100 100 Oxygen O2 Source Room air - Labs Labs: Laboratory Tests 02/05/20 02/05/20 02/05/20 23:05 23:05 23:05 WBC 10.7 RBC 4.78 Hgb 14.4 Hct 41.4 MCV 86.6 MCH 30.1 MCHC 34.8 RDW 11.5 L Plt Count 253 MPV 9.8 Neut # (Auto) 4.8 Lymph # (Auto) 4.6 H Wirt # (Auto) 0.9 Eos # (Auto) 0.3 Baso # (Auto) 0.1 Absolute Nucleated RBC 0.00 Nucleated RBC % 0.0 PT 11.4 INR 1.0 APTT 29.7 Sodium 138 Potassium 3.3 L Chloride 102 Carbon Dioxide 24 Anion Gap 12.0 BUN 20 Creatinine 0.9 Estimated GFR (MDRD) 70 L Glucose 96 Lactic Acid Calcium 9.6 Total Bilirubin 0.6 AST 21 ALT 16 Alkaline Phosphatase 47 Total Protein 7.7 Albumin 4.8 Globulin 2.9 Albumin/Globulin Ratio 1.7 Lipase 40 Urine Color Urine Clarity Urine pH Ur Specific [place] Urine Protein Urine Glucose (UA) Urine Ketones Urine Occult Blood Urine Nitrite Urine Bilirubin Urine Urobilinogen Ur Leukocyte Esterase Urine RBC Urine WBC Ur Squamous Epith Cells Urine Bacteria Ur Microscopic Review Urine Culture Comments Urine HCG, Qual 02/05/20 02/05/20 02/05/20 23:05 23:17 23:17 WBC RBC Hgb Hct MCV MCH MCHC RDW Plt Count MPV Neut # (Auto) Lymph # (Auto) Wirt # (Auto) Eos # (Auto) Baso # (Auto) Absolute Nucleated RBC Nucleated RBC % PT INR APTT Sodium Potassium Chloride Carbon Dioxide Anion Gap BUN Creatinine Estimated GFR (MDRD) Glucose Lactic Acid 0.8 Calcium Total Bilirubin AST ALT Alkaline Phosphatase Total Protein Albumin Globulin Albumin/Globulin Ratio Lipase Urine Color YELLOW Urine Clarity CLEAR Urine pH 5.5 Ur Specific [place] 1.010 1.010 Urine Protein NEGATIVE Urine Glucose (UA) NEGATIVE Urine Ketones TRACE Urine Occult Blood SMALL H Urine Nitrite NEGATIVE Urine Bilirubin NEGATIVE Urine Urobilinogen 0.2 (NORMAL) Ur Leukocyte Esterase NEGATIVE Urine RBC 0-5 Urine WBC 0-3 Ur Squamous Epith Cells FEW Squamous Urine Bacteria None Seen Ur Microscopic Review INDICATED Urine Culture Comments NOT INDICATED Urine HCG, Qual NEGATIVE PD MEDICAL DECISION MAKING - ED course Complexity details: reviewed results, re-evaluated patient (01:00 Pain resolved. ), considered differential (biliary colic, cholecystitis, cholelithiasis, pancreatitis.), d/w patient, d/w search engine optimization consultant, other (Work-up shows cholelithiasis without cholecystitis, no fever, no white count spoke with general surgery plan is to follow-up with outpatient.) - Consults Consults: Discussed case with (General surgery, Dr. Matheus Lew. Plan is for patient to follow-up in general surgery clinic for outpatient scheduling of cholecystectomy.) Departure - Departure Disposition: 01 Home, Self Care Clinical Impression: Biliary colic Abdominal pain Qualifiers: Abdominal location: right upper quadrant Qualified Code(s): R10.11 - Right upper quadrant pain Cholelithiasis Qualifiers: Cholelithiasis location: other site Biliary obstruction: without biliary obstruction Qualified Code(s): K80.80 - Other cholelithiasis without obstruction Condition: Stable Instructions: ED Gallstone W Biliary Colic Follow-Up: ISABEL MCCANN MD [Primary Care Provider] - Matheus Lew MD [Provider Admit Priv/Credential] - Tomorrow Prescriptions: Hydrocodone/Acetaminophen [[place] 5-325 Tablet] 1 each PO Q6HR PRN #10 tablet PRN Reason: Pain Ondansetron Odt [Zofran Odt] 4 mg TL Q6H PRN #10 tablet PRN Reason: Nausea / Vomiting Comments: call the general surgery clinic tomorrow to schedule outpatient surgery for chol ecystectomy.
[2020-02-05 23:14] LABS: BASOPHILS # (AUTO) 0.1 10^3/uL (0.0-0.1); BASOPHILS % (AUTO) 0.7 %; EOSINOPHILS # (AUTO) 0.3 10^3/uL (0.0-0.7); EOSINOPHILS % (AUTO) 2.5 %; HGB - HEMOGLOBIN 14.4 g/dL (12.0-16.0); LYMPHOCYTES # (AUTO) 4.6 10^3/uL (1.5-3.5); LYMPHOCYTES % (AUTO) 42.7 %; MEAN CORPUSCULAR HEMOGLOBIN 30.1 pg (27.0-31.0); MEAN CORPUSCULAR HGB CONC 34.8 g/dL (32.0-36.0); MEAN CORPUSCULAR VOLUME 86.6 fL (81.0-99.0); MEAN PLATELET VOLUME 9.8 fL (7.9-10.8); MONOCYTES # (AUTO) 0.9 10^3/uL (0.0-1.0); MONOCYTES % (AUTO) 8.8 %; NEUTROPHILS # (AUTO) 4.8 10^3/uL (1.5-6.6); PLT - PLATELET COUNT 253 10^3/uL (130-450); RED BLOOD COUNT 4.78 10^6/uL (4.20-5.40); RED CELL DISTRIBUTION WIDTH 11.5 % (12.0-15.0); WHITE BLOOD COUNT 10.7 x10^3/uL (4.8-10.8)
[2020-02-05] MEDS ORDERED: ONDANSETRON 4 MG/2 ML VIAL IVP STA (23:14)
[2020-02-05] MEDS ORDERED: HYDROmorphone 0.5 MG/0.5 ML SYRINGE IVP STA (23:14)
[2020-02-05] MEDS ORDERED: SODIUM CHLORIDE 0.9% 1,000 ML IV ONE (23:14)
[2020-02-05] MEDS ORDERED: HYDROmorphone 1 MG/ML CARPUJECT IVP STA (23:18)
[2020-02-05 23:24] LABS: ALBUMIN 4.8 g/dL (3.2-5.5); ALBUMIN/GLOBULIN RATIO 1.7 (1.0-2.2); BILIRUBIN,TOTAL 0.6 mg/dL (0.2-1.0); CALCIUM 9.6 mg/dL (8.5-10.3); CREATININE 0.9 mg/dL (0.4-1.0); TOTAL PROTEIN 7.7 g/dL (6.7-8.2)
[2020-02-05 23:25] LABS: BILIRUBIN,URINE NEGATIVE (NEGATIVE); GLUCOSE, URINE (UA) NEGATIVE (NEGATIVE); KETONES,URINE (UA) TRACE mg/dL (NEGATIVE); LEUKOCYTE ESTERASE, URINE NEGATIVE (NEGATIVE); NITRITE,URINE NEGATIVE (NEGATIVE); OCCULT BLOOD,URINE SMALL (NEGATIVE); PH,URINE 5.5 PH (5.0-7.5); PROTEIN,URINE NEGATIVE (NEGATIVE); UROBILINOGEN,URINE 0.2 (NORMAL) E.U./dL (NORMAL)
[2020-02-05 23:26] LABS: CLARITY,URINE CLEAR (CLEAR)
[2020-02-05 23:27] LABS: HCG UR QUAL NEGATIVE
[2020-02-05 23:33] LABS: PT - PROTHROMBIN TIME 11.4 secs (9.9-12.6)
[2020-02-05 23:40] LABS: PARTIAL THROMBOPLASTIN TIME 29.7 secs (24.9-33.3)
[2020-02-05 23:41] LABS: BACTERIA,URINE None Seen /HPF (None Seen); RBC,URINE 0-5 /HPF (0-5); SQUAMOUS EPITHELIAL CELL,UR FEW Squamous (<= Few)
--- NOTE | 2020-02-06 00:49 | Ultrasound Report ---
Reason: RUQ ABD PAIN Procedure Date: 02/05/2020 Accession Number: [id number] / [id number] Procedure: US - Abdomen Limited CPT Code: Final Report FULL RESULT: EXAM: ABDOMEN ULTRASOUND LIMITED, RUQ EXAM DATE: 02/05/2020 11:58 PM. CLINICAL HISTORY: RUQ ABD PAIN. COMPARISON: CT ABDOMEN/PELVIS W/ 01/24/2019 7:37 AM. TECHNIQUE: Real-time scanning was performed with static images obtained. FINDINGS: Liver: Normal in size and echotexture. Liver measures 15.8 cm. Main portal vein flow: Hepatopetal. Gallbladder: Cholelithiasis. No gallbladder wall thickening or pericholecystic fluid. Unreliable sonographic [place]'s sign due to medication. Biliary System: Visualized portion of CBD measures 2.6 mm. No intrahepatic or extrahepatic ductal dilatation. Other: Possible extrarenal pelvis of right kidney. No hydronephrosis. IMPRESSION: 1. Cholelithiasis without sonographic findings to suggest acute cholecystitis. 2. No biliary dilation. RADIA
[2020-02-06 01:05] VITALS: BP 123/67
== END 2020-02-06 01:13 | disposition home or self-care (01) ==
LOC: ED 22:48
DX: K80.20 Calculus of gallbladder without cholecystitis without obstruction (principal)
CPT/HCPCS: 36415; 76705; 80053; 81001; 81025; 83605; 83690; 85025; 85610; 85730; 96361; 96374; 96375; 99283; 99284; J1170; 81003; 87086

== ENCOUNTER 2020-02-09 11:57 | Day surgery (SDC) | payer OTHER ==
[~2020-02-09 11:57] MED LIST: BUPIVACAINE 0.25% PF 30 ML VIAL ONE; LACTATED RINGERS 1,000 ML IV ONE
[2020-02-09] MEDS ORDERED: NEOSTIGMINE 1 MG/1 ML 10 ML MDV IVP ONE (11:58)
[2020-02-09] MEDS ORDERED: DEXAMETHASONE 4 MG/ML VIAL IVP ONE (11:58)
[2020-02-09] MEDS ORDERED: fentaNYL 100 MCG/2 ML VIAL IVP ONE (11:58)
[2020-02-09] MEDS ORDERED: ACETAMINOPHEN 1,000 MG/100 ML 100 ML IV ONE (11:58)
[2020-02-09] MEDS ORDERED: ePHEDrine 50 MG/ML VIAL IVP ONE (11:58)
[2020-02-09] MEDS ORDERED: GLYCOPYRROLATE 1 MG/5 ML VIAL IVP ONE (11:58)
[2020-02-09] MEDS ORDERED: KETOROLAC 30 MG/ML VIAL IVP ONE (11:58)
[2020-02-09] MEDS ORDERED: MIDAZOLAM 2 MG/2 ML VIAL IVP ONE (11:58)
[2020-02-09] MEDS ORDERED: ONDANSETRON 4 MG/2 ML VIAL IVP ONE (11:58)
[2020-02-09] MEDS ORDERED: PROPOFOL 200 MG/20 ML VIAL IVP ONE (11:58)
[2020-02-09] MEDS ORDERED: LIDOCAINE-MPF 2% 5 ML VIAL IM ONE (11:58)
[2020-02-09] MEDS ORDERED: ROCURONIUM 50 MG/5 ML VIAL IVP ONE (11:58)
[2020-02-09] MEDS ORDERED: CEFAZOLIN SODIUM IN 0.9 % NACL 2 GM/100 ML BAG IV ONE (12:13)
--- NOTE | 2020-02-09 12:42 | ANESTHESIA ---
Pre-Anesthesia VS, & Labs - Diagnosis cholecystits - Procedure laparoscopic cholecystectomy Vital Signs: Temp Pulse Resp BP Pulse Ox 37.1 C 59 L 16 106/87 H 99 02/09/20 11:55 02/09/20 11:55 02/09/20 11:55 02/09/20 11:55 02/09/20 11:55 Height 5 ft 7 in Weight (kg) 70.6 kg Body Mass Index 23.9 - NPO >8 hours - Is Patient ?: No Home Medications and Allergies Allergies/Adverse Reactions: Allergies Allergy/AdvReac Type Severity Reaction Status Date / Time Penicillins Allergy Rash Verified 02/05/20 22:58 Anes History & Medical History - Anesthetic History Anesthesia Complications: reports: No previous complications - Medical History Cardiovascular: reports: None Pulmonary: reports: None Gastrointestinal: reports: None Urinary: reports: Other Neuro: reports: None Musculoskeletal: reports: None Endocrine/Autoimmune: reports: None Blood Disorders: reports: None Skin: reports: None Smoking Status: Never smoker - Surgical History General: Colonoscopy, Other Eyes Ears Nose Throat (EENT): Tonsil/Adenoidectomy Gynecologic: Endometrial ablation, Dilation and currettage, Hysterectomy, Breast implants Exam General: Alert Dental: WNL Mouth Opening: Greater than 4 Fingerbreadths Neck Mobility: Normal Mallampati classification: II Thyromental Distance: greater than 6 cm Respiratory: Lungs clear Cardiovascular: Regular rate Plan Anesthesia Type: General Consent for Procedure(s) Verified and Reviewed: Yes Code Status: Attempt Resuscitation ASA classification: 2-Mild systemic disease Is this case an emergency?: No
[2020-02-09] MEDS ORDERED: BUPIVACAINE 0.25% PF 30 ML VIAL SUBQ ONE ×2 (13:07→14:41)
[2020-02-09] MEDS ORDERED: IBUPROFEN 600 MG TABLET PO PRN ×2 (15:05→15:06)
[2020-02-09] MEDS ORDERED: ONDANSETRON 4 MG/2 ML VIAL IVP PRN ×2 (15:05→15:06)
[2020-02-09] MEDS ORDERED: ACETAMINOPHEN 325 MG TABLET PO PRN ×2 (15:05→15:06)
[2020-02-09] MEDS ORDERED: oxyCODONE 5 MG TABLET PO PRN (15:06)
[2020-02-09] MEDS: HYDROmorphone 1 MG/ML CARPUJECT ONE ×2 (15:30→15:35)
[2020-02-09] MEDS: fentaNYL 100 MCG/2 ML VIAL ONE ×2 (15:45→15:50)
[2020-02-09] MEDS ORDERED: oxyCODONE 5 MG TABLET ONE (16:17)
[2020-02-09 17:05] VITALS: BP 103/69
--- NOTE | 2020-02-09 20:44 | OPERATIVE REPORT ---
DATE OF SERVICE: 02/09/2020 Physician: Kai Manrique MD PREOPERATIVE DIAGNOSIS: Chronic cholecystitis. POSTOPERATIVE DIAGNOSIS: Chronic cholecystitis. PROCEDURE PERFORMED: Laparoscopic cholecystectomy. SURGEON: Kai Manrique MD DEVELOPING MACHINE OPERATOR: None. TYPE OF ANESTHESIA 1. General endotracheal anesthesia. 2. Local anesthesia with Marcaine. COMPLICATIONS: None. ESTIMATED BLOOD LOSS: 5 mL DRAINS: None. SPECIMENS: Gallbladder. FINDINGS: A very narrow cystic duct. A large floppy gallbladder with mild posterior wall edema. Healthy appearing liver. The common hepatic and common bile duct were easily evident without dissection and were normal in diameter. INDICATIONS FOR PROCEDURE: Patient is a healthy 39-year-old with biliary colic on and off for the last couple of years. Her attacks come more frequently over time. She developed a very significant attack approximately 5 days ago. Her pain is not improving. She has pain with movement and activity as well with diet. She has not had signs or symptoms of choledocholithiasis. She presents for cholecystectomy. Risks discussed. Alternatives discussed. All questions answered and consent obtained. PROCEDURE: Patient was properly identified, brought to the operating room and placed in supine position. General endotracheal anesthesia was induced. Orogastric tube and sequential compression devices were placed. She was prepped and draped in a sterile fashion and given preoperative antibiotics. Local anesthetic was given to incision areas. An infraumbilical incision was made. Dissection proceeded down to the fascia. The fascia was incised, lifted upwards and the abdomen entered with the Veress needle. CO2 was insufflated to a pressure of 15. An 11 mm trocar followed by 30-degree scope was placed. There was no evidence of injury from Veress needle or trocar placement. Under direct vision, two 5 mm trocars were placed in the right upper quadrant and a 10 mm trocar was placed in the epigastrium. Gallbladder was retracted anterior. Peritoneal type attachments were taken down from the infundibulum and Manjit's pouch area. As above the common bile duct and common hepatic duct were easily evident without dissection. She had a long, narrow cystic duct and an anterior, posterior cystic artery branch. She had scarring along this long narrow cystic duct. The infundibulum was retracted right lateral and caudad. A large bare cystic plate area was carefully developed. The anterior cystic artery was first clipped at the gallbladder x2, slightly proximal and sharply divided. This allowed for a larger cystic plate area. The cystic duct was then clipped proximally, mid portion and then x3 more proximal or 2 cm from the common bile duct and sharply divided. Posterior cystic artery branch was similarly clipped and divided. The gallbladder was mobilized from the bed of the liver without spillage of bile or stone material. The gallbladder was brought out through the epigastric trocar site. Hemostasis was assured. Clips were securely fastened. The trocars were removed under direct vision and CO2 evacuated. Fascia in the epigastrium was closed with a [id number] 0 Vicryl. The fascia at the infraumbilical site was closed with a running 0 Vicryl suture. Skin was closed with buried interrupted 4-0 Monocryl. Dressings were applied. She tolerated the procedure very well. TD: 02/09/2020 20:30 [email or web address]
== END 2020-02-09 11:58 | disposition home or self-care (01) ==
LOC: SDS 11:57
PROVIDERS: ATTEND Surgery
PROC: 0FT44ZZ Resection of Gallbladder, Percutaneous Endoscopic Approach (ICD-10-PCS; principal; 2020-02-09 13:00)
DX: K81.1 Chronic cholecystitis (principal)
CPT/HCPCS: 47562; 88304; A9270; J0131; J0690; J1170; J7120